=== PATIENT | female | born 2000 | race Caucasian/White ===

== ENCOUNTER 2022-12-21 14:10 | Outpatient (CLI) | payer OTHER, SELFPAY | END 2022-12-21 14:11 | disposition home or self-care (01) | PROVIDERS: Visit Provider Family Medicine | DX: Z00.00 Encounter for general adult medical examination without abnormal findings (principal); R53.83 Other fatigue; D64.9 Anemia, unspecified; Z79.899 Other long term (current) drug therapy | CPT/HCPCS: 80053; 82728; 83540; 83550 ==